=== PATIENT | female | born 2000 | race Caucasian/White ===

== ENCOUNTER → 2020-01-27 10:25 | Outpatient (BNVA) | payer OTHER, SELFPAY | PROVIDERS: PCP Nurse Practitioner Family; Visit Provider Family Medicine | DX: J02.9 Acute pharyngitis, unspecified (principal) | CPT/HCPCS: 87081; 87880 ==

== ENCOUNTER → 2021-11-08 14:06 | Outpatient (BNVA) | payer OTHER, SELFPAY | PROVIDERS: PCP Nurse Practitioner Family; Visit Provider Nurse Practitioner Women's Health | DX: Z34.90 Encounter for supervision of normal pregnancy, unspecified, unspecified trimester (principal); N92.6 Irregular menstruation, unspecified | CPT/HCPCS: 81025 ==

== ENCOUNTER → 2021-11-24 08:45 | Outpatient (BNVA) | payer OTHER, SELFPAY | PROVIDERS: PCP Nurse Practitioner Family; Visit Provider Obstetrics & Gynecology | DX: Z34.90 Encounter for supervision of normal pregnancy, unspecified, unspecified trimester (principal) | CPT/HCPCS: 80307; 81000; 85025; 86592; 86762; 86787; 86803; 86850; 86900; 87086; 87340; 87806 ==

== ENCOUNTER → 2021-12-06 10:46 | Outpatient (BNVA) | payer OTHER, SELFPAY | PROVIDERS: PCP Nurse Practitioner Family; Visit Provider Obstetrics & Gynecology | DX: Z34.90 Encounter for supervision of normal pregnancy, unspecified, unspecified trimester (principal) | CPT/HCPCS: 84315; 87491; 87591; 88175 ==

== ENCOUNTER → 2022-02-01 16:05 | Outpatient (BNVA) | payer OTHER, SELFPAY | PROVIDERS: PCP Nurse Practitioner Family; Visit Provider Obstetrics & Gynecology | DX: Z36.89 Encounter for other specified antenatal screening (principal) | CPT/HCPCS: 76805 ==

== ENCOUNTER → 2022-03-29 12:00 | Outpatient (BNVA) | payer OTHER, SELFPAY | PROVIDERS: PCP Nurse Practitioner Family; Visit Provider Obstetrics & Gynecology | DX: Z34.90 Encounter for supervision of normal pregnancy, unspecified, unspecified trimester (principal) | CPT/HCPCS: 82950; 84315; 85027 ==

== ENCOUNTER → 2022-05-24 12:00 | Outpatient (BNVA) | payer OTHER, SELFPAY | PROVIDERS: PCP Nurse Practitioner Family; Visit Provider Obstetrics & Gynecology | DX: Z34.90 Encounter for supervision of normal pregnancy, unspecified, unspecified trimester (principal) | CPT/HCPCS: 84315; 87081 ==

== ENCOUNTER → 2022-06-20 13:05 | Outpatient (BNVA) | payer OTHER, SELFPAY | PROVIDERS: PCP Nurse Practitioner Family; Visit Provider Obstetrics & Gynecology | DX: Z36.87 Encounter for antenatal screening for uncertain dates (principal) | CPT/HCPCS: 76815 ==

== ENCOUNTER 2022-06-20 19:41 | Inpatient (IN) | payer OTHER, SELFPAY ==
[2022-06-20] VITALS (12 sets, daily range): BP systolic 106–127; BP diastolic 59–81; PULSE 81–106; RESP 16–17; BMI 29.7
[2022-06-20 19:32] LABS: Basophils % 0.2 %; Eosinophils # 0.2 10^3/uL (0.0-0.8); Eosinophils % 1.8 %; Hematocrit 33.7 % (37.0-47.0); Hemoglobin 10.4 g/dL (11.5-15.3); Lymphocytes # 2.1 10^3/uL (0.8-4.8); Mean Corpuscular HGB Conc 30.9 g/dL (30.0-36.0); Mean Corpuscular Hemoglobin 26.1 pg (28.0-34.0); Mean Corpuscular Volume 84.5 fl (81-99); Mean Platelet Volume 11.1 fL (7.4-10.4); Monocytes # 0.6 10^3/uL (0.2-0.9); Neutrophils # 9.17 10^3/uL (1.8-7.7); Neutrophils % 74.1 %; Nucleated Red Blood Cells % 0 %; Platelet Count 456 10^3/cmm (130-400); Red Blood Count 3.99 10^6/uL (4.1-5.3); Red Cell Distribution Width 13.7 % (12.1-15.1); White Blood Count 12.4 10^3/uL (4.0-10.0)
[2022-06-20] MEDS: lactated ringers 1,000 ML 999 ML IV (19:45)
[2022-06-20] MEDS: miSOPROStol 100 mcg tablet 25 MCG VAGINAL (21:09)
[2022-06-21] VITALS (90 sets, daily range): BP systolic 98–198; BP diastolic 55–95; PULSE 62–193; RESP 16–18; TEMP 36.2–36.9; O2SAT 97–100
[2022-06-21] MEDS: alum-mag-hydroxide-sime 30 mL UDC PO (01:58)
[2022-06-21] MEDS: lactated ringers 1,000 ML 125 ML IV (02:54)
[2022-06-21] MEDS: oxytocin 30 UNIT/500 ML BAG IV (02:55)
[2022-06-21] MEDS: ondansetron 2 mg/ML SDV 2 mL 4 MG IVP ×2 (06:12→13:33)
--- NOTE | 2022-06-21 06:52 | P.HPUD_ITS ---
Labor & Delivery H&P Update Date of Procedure: June 21, 2022 Date H&P Performed: 06/20/22 H&P update information: I have reviewed H&P completed within last 30 days, I have examined patient prior to procedure, No changes to prior documentation and H&P is in [facility] [place] EMR on date indicated Admission Diagnosis:
[2022-06-21] MEDS: fentaNYL 50 mcg/mL INJ 2mL IVP (07:37)
[2022-06-21] MEDS: lactated ringers 1,000 ML 999 ML IV ×2 (08:35→09:27)
[2022-06-21] MEDS: metoclopramide 5 mg/mL SDV 2 mL 10 MG IV (08:42)
--- NOTE | 2022-06-21 10:16 | ANES.PREANE2 ---
Pre-Anesthetic Assessment Height/Weight: Height 1.63 m Weight 78.471 kg Temp Pulse Resp BP Pulse Ox O2 Del Method 98.1 F 82 17 102/68 100 06/21/22 10:04 06/21/22 10:13 06/21/22 10:04 06/21/22 10:13 06/21/22 10:13 06/20/22 20:00 Familial anesthetic complications: None Was Beta Noah taken within 24 hours: N/A Was Clonidine taken within 24 hours: N/A Social No alcohol and No tobacco Exam alert, oriented x 3, clear to auscultation bilaterally and regular rate & rhythm Airway Submandibular: within normal limits Cervical ROM: within normal limits Mallampati: Class II Dentition: full History/ROS No significant history except as noted Anesthetic Plan ASA status: 2 Anesthesia: Regional (specify below) (labor epidural) Medications/Allergies Home Medications Medication Instructions Recorded Confirmed Last Taken Type prenat.vits,callie,erm-fkym-bsosd 1 tab PO DAILY 11/08/21 06/20/22 Unknown History ferrous sulfate 325 mg (65 mg 325 mg PO BID #90 tabs 03/30/22 06/20/22 Unknown Rx iron) tablet,delayed release breast pump (Pump In Style #1 ea 04/06/22 06/20/22 Unknown Rx Advanced) Allergies Allergy/AdvReac Type Severity Reaction Status Date / Time No Known Allergies Allergy Verified 06/20/22 13:58 Current Medications Generic Name Dose Route Start Last Admin Trade Name Freq PRN Reason Stop Dose Admin Al Hydrox/Mg Hydrox/Simethicone 30 ml 06/20/22 19:11 06/21/22 01:58 Nuqs-Itj-Driwywxuw-Joann 30 Ml Udc PO 30 ml Q4H PRN Administration INDIGESTION Fentanyl 25 - 100 mcg 06/21/22 07:26 06/21/22 07:37 Fentanyl 50 Mcg/Ml Inj 2ml IVP 50 mcg Q1H PRN Administration SEVERE PAIN Lactated Ringer's 1,000 mls @ 999 mls/hr 06/20/22 19:11 06/21/22 09:27 Lactated Ringers IV Infused .Q1H1M PRN Infusion Per L&D Rescitation Protocol Lactated Ringer's 1,000 mls @ 125 mls/hr 06/21/22 00:30 06/21/22 09:27 Lactated Ringers IV Infused .Q8H BOB Infusion Oxytocin 30 unit in 500 mls @ 1 mls/hr 06/21/22 02:15 06/21/22 07:00 Pitocin IV 15 milliunit/min .Q24H BOB 15 mls/hr Titration Protocol 1 MILLIUNIT/MIN Ropivacaine 200 mg in 100 mls @ 13 mls/hr 06/21/22 08:45 06/21/22 09:26 Naropin Premix EPIDURAL 13 mls/hr .Q7H42M BOB Administration Lactated Ringer's 1,000 mls @ 999 mls/hr 06/21/22 08:43 06/21/22 09:46 Lactated Ringers IV 125 mls/hr .Q1H1M PRN Infusion See label comments Ondansetron HCl 4 mg 06/20/22 19:11 06/21/22 06:12 Ondansetron 2 Mg/Ml Sdv 2 Ml IVP 4 mg Q4H PRN Administration NAUSEA AND VOMITING PFSH Anesthesia Medical History Eczema Diagnosed in her teenage years and uses triamcinolone cream as needed No pertinent past medical history Denies diabetes, asthma, hypertension, seizures, DVT/PE PCP: None Surgical History No pertinent past surgical history Family History Grandmother Diabetes Maternal Hypertension Maternal and Paternal Family/Other Breast cancer Maternal and Paternal Great Grandmothers--- dx age both 60's Grandfather Hypertension Maternal and Paternal Denies family history of Colon cancer Ovarian cancer Heart disease Hypercholesteremia Uterine cancer Thyroid disease Stroke Female Reproductive History : 1 Data Anesthesia : 06/20/22 18:40 Short CBC 06/20/22 Range/Units 18:40 WBC 12.4 H (4.0-10.0) 10^3/uL Hgb 10.4 L (11.5-15.3) g/dL Hct 33.7 L (37.0-47.0) % MCV 84.5 (81-99) fl Plt Count 456 H (130-400) 10^3/cmm Neut % (Auto) 74.1 % Neut # (Auto) 9.17 H (1.8-7.7) 10^3/uL Cardiac Studies: No Data to Display Anesthesia Procedures Epidural Time Out Performed: Yes Consents Signed: Procedure Consent Lumbar Level: L3-L4 Epidural position: sitting Epidural procedure: sterile prep of area, 1% lidocaine to numb the area, 18 g needle, neg for paresthesia, test dose given, 1.5% xylocaine 1:200k epi, placed PCEA, no systemic response, sterile dressing applied and 0.2% Ropiavacaine @ mls/hr (13) Additional Comments: JAUN at 5cm, cath at 10cm, bolused 5mls of 2% lido
--- NOTE | 2022-06-21 17:30 | P.PCNOB_ITS ---
Delivery Note: Date of delivery: June 21, 2022 - PRE-DELIVERY DIAGNOSIS: 22-year-old 1 para 0 at 40weeks 0 days Induction of labor for IUGR of 6 percentile Mild anemia GBS negative POST-DELIVERY DIAGNOSIS: Vaginal delivery on 06/21/2022 PROCEDURE: Vaginal delivery on 06/21/2022 ANESTHESIA: Epidural anesthesia DELIVERING PHYSICIAN: Katy Larios FACOG PRE-DELIVERY COURSE: Ms. Manning was a 22-year-old 1 para 0 at 40 weeks and 0 days who presented for routine visit on 06/20/2022. At that visit ultrasound for growth performed showed growth was in the 6 percentile and given IUGR and the fact that she was 40 weeks I recommended delivery and patient is agreeable with this. When she presented to labor and delivery for scheduled induction later that day she was noted to be 1 to 2 cm, 60% and -2 station. She had no contractions. Induction was started with Cytotec placed at 11 PM. With this she started to have pretty regular contractions but was not uncomfortable. She did make some cervical change to 2 cm, 70% and -2 station after 4 hours however was having contractions every 3 to 5 minutes. She was started on Pitocin which was titrated to a maximum of 20 mIU. She had spontaneous rupture of membranes at 7:55 AM after which With this she started to have regular painful con tractions and an epidural was placed. With this she started to make regular cervical change and was 3 cm at 10:30 AM, 6 cm at 12:30 PM and fully dilated at 2:30 PM. She was set up in lithotomy position ready to push as she was uncomfortable and felt pressure. DELIVERY NOTE: She was set up in lithotomy position and was pushing effectively. She was noted to be +3 station and continued pushing well. The head delivered in ZULEYKA position, no nuchal cord was present. The shoulders and rest of the body followed with her next push. The baby's mouth and nose were suctioned and the baby was placed on the mother's belly. Once cord pulsations stopped the cord was clamped and cut. The placenta delivered spontaneously intact with membranes and was discarded. The fundus was noted to be firm and well contracted. The vagina and cervix were inspected and no cervical or sulcal lacerations were noted. The perineum was intact except for a first-degree vaginal laceration which was repaired with a [id number] suture with 3-0 Vicryl on an SH needle. Good reapproximation and hemostasis was achieved. Baby girl, Laura Maki born at 4:20 PM on 06/21/[birth year]22 with 8/9 , weighing 7 pounds 0 ounces, 3170 g, 21 inches long. Placenta was delivered spontaneously intact with membranes at 4:23 PM. Cotyledons were intact , centrally inserted umbilical cord with 3 vessels noted. Estimated blood loss 250 mL. Complications-none, both baby and mother were left to recover in a stable condition This documentation was created by fitaborate beauty specialist software (known for inherent beauty specialist error). Every effort was made to assure accuracy of beauty specialist. Any obvious errors or omissions should be clarified with the author of the document. History History History 1 Term 1 Miscarriages/Ectopic 0 0 Living Children 1 Other History: X 1 1---> 06/21/2022---full-term vaginal delivery at 40 weeks, baby girl,(Laura Maki) weighing [address] Larios at [facility] [place]. First-degree vaginal tear. No complications. Coding Level of Care Code Acute Weights And Measures Inspector for Nacho Carrasco
--- NOTE | 2022-06-21 18:50 | PC.NURSE ---
pt up to bathroom without assistance. chantal care shown. pad and gown changed. pt back to bed
[2022-06-21] MEDS: benzocaine-menthol 78 gm Canister 1 SPRAY TOPICAL (20:02)
[2022-06-21] MEDS: docusate sodium 100 mg Capsule PO (20:02)
[2022-06-21] MEDS: lanolin oint 7 gm 1 APPLIC TOPICAL (20:03)
[2022-06-21] MEDS: ibuprofen 800 mg tablet PO (21:11)
[2022-06-22] VITALS (7 sets, daily range): BP systolic 113–124; BP diastolic 65–73; PULSE 77–91; RESP 16–17; TEMP 36.7–36.9; O2SAT 99–100
[2022-06-22] MEDS: HYDROcodone-acetaminophen 5-325 mg Tablet PO (01:18)
[2022-06-22 04:21] LABS: Hematocrit 28.9 % (37.0-47.0); Hemoglobin 9.5 g/dL (11.5-15.3); Mean Corpuscular HGB Conc 32.9 g/dL (30.0-36.0); Mean Corpuscular Hemoglobin 26.5 pg (28.0-34.0); Mean Corpuscular Volume 80.5 fl (81-99); Platelet Count 362 10^3/cmm (130-400); Red Blood Count 3.59 10^6/uL (4.1-5.3); Red Cell Distribution Width 13.8 % (12.1-15.1); White Blood Count 19.5 10^3/uL (4.0-10.0)
[2022-06-22] MEDS: docusate sodium 100 mg Capsule PO (10:46)
[2022-06-22] MEDS: ibuprofen 800 mg tablet PO ×3 (10:46→22:30)
[2022-06-22] MEDS: prenatal vitamin Capsule 1 CAP PO (10:46)
--- NOTE | 2022-06-22 15:15 | ANE.PACU2 ---
Inpatient post-anesthesia follow up: Airway intact: Yes Vital signs: Temperature 98.1 F Pulse Rate 84 Respiratory Rate 16 Blood Pressure 117/65 Pulse Oximetry 100 Oxygen Delivery Me thod Room Air Oxygen Flow Rate Fraction of Inspir ed Oxygen Hydration adequate: Yes Nausea and vomiting: No Pain level: 1 Mental status: Baseline
--- NOTE | 2022-06-22 18:49 | PM.PN ---
Subjective Subjective: SUBJECTIVE: Ms. Manning is doing well today. She reports some soreness in her hips but is otherwise doing well. States that ibuprofen controls this well. Denies shortness of breath, chest pain, fever, chills, nausea, vomiting. She has been tolerating regular diet and voiding without any difficulty. She states that breast-feeding has been challenging but other than that is doing okay and is bonding well with her daughter. She reports moderate vaginal bleeding. OBJECTIVE/PHYSICAL EXAM: Gen.: No acute distress Heart: S1-S2 heard, regular rate and rhythm Lungs: Clear to auscultation bilaterally Abdomen: Soft, fundus firm below umbilicus,. Legs: No calf tenderness, +1 bilateral pitting pedal edema. ASSESSMENT AND PLAN: 22-year-old 1 para 1-0-0-1 status post vaginal delivery, day #1 -Doing well-continue routine care -Stable vital signs, stable hemoglobin, white count slightly elevated but not significantly given predelivery value. -Continue to monitor - consult done -Anticipate discharge home tomorrow as long as she is doing well -P.o. pain medication as needed Vitals/I&O/Wt Last Vital Signs Temp 98.1 F 06/22/22 10:30 Pulse 82 06/22/22 10:30 Resp 17 06/22/22 10:30 BP 120/72 06/22/22 10:30 Pulse Ox 100 06/22/22 05:50 O2 Del Method 06/22/22 10:30 06/22/22 06/22/22 06/22/22 06:59 14:59 22:59 Output Total 950 / 2650 Balance -950 / 724.500 Physical Exam Urinary Catheter Management: Abdi Latex: Cath Placed During This Visit: yes, but has since been removed by the nurse Reason for Continuing Indwelling Catheter: Decision to DC Catheter Urinary Catheter Date of Insertion: 06/21/22 Urinary Catheter Time of Insertion: 09:50 Date Urinary Catheter Removed: 06/21/22 Time Urinary Catheter Discontinued: 15:40 Data : 06/22/22 04:16 Attestations Medical Necessity Statement*: Patient is required just patient needs to stay for 1-2 more midnights to recover from delivery Coding Level of Care Code Acute [place]atch [place] Cleaner for Nacho Carrasco
[2022-06-23 04:30] VITALS: BP 113/61; PULSE 79; TEMP 36.6; O2SAT 98
[2022-06-23 07:24] VITALS: PULSE 79; TEMP 36.6; O2SAT 98
--- NOTE | 2022-06-23 07:54 | P.DS_ITS ---
Discharge Providers COUPLING MACHINE OPERATOR Date of Admission: 06/20/22 19:41 Date of Discharge: 06/23/22 Attending Provider at Admission: Katy Oakes MD Attending Provider at Discharge: Katy Oakes MD PRE-DELIVERY DIAGNOSIS: 22-year-old 1 para 0 at 40weeks 0 days Induction of labor for IUGR of 6 percentile Mild anemia GBS negative POST-DELIVERY DIAGNOSIS: Vaginal delivery on 06/21/2022 PROCEDURE: Vaginal delivery on 06/21/2022 ANESTHESIA: Epidural anesthesia DELIVERING PHYSICIAN: Katy Larios FACOG PRE-DELIVERY COURSE: Ms. Manning was a 22-year-old 1 para 0 at 40 weeks and 0 days who presented for routine visit on 06/20/2022.? At that visit ultrasound for growth performed showed growth was in the 6 percentile and given IUGR and the fact that she was 40 weeks I recommended delivery and patient is agreeable with this.? When she presented to labor and delivery for scheduled induction later that day she was noted to be 1 to 2 cm, 60% and -2 station.? She had no contractions.? Induction was started with Cytotec placed at 11 PM.? With this she started to have pretty regular contractions but was not uncomfortable.? She did make some cervical change to 2 cm, 70% and -2 station after 4 hours however was having contractions every 3 to 5 minutes.? She was started on Pitocin which was titrated to a maximum of 20 mIU.? ? She had spontaneous rupture of membranes at 7:55 AM after which With this she started to have regular painful contractions and an epidural was placed.? With this she started to make regular cervical change and was 3 cm at 10:30 AM, 6 cm at 12:30 PM and fully dilated at 2:30 PM.? She was set up in lithotomy position ready to push as she was uncomfortable and felt pressure. DELIVERY? NOTE: She was set up in lithotomy position and was pushing effectively. She was noted to be? +3 station and continued pushing well. The head delivered in ZULEYKA position, no nuchal cord was present. The shoulders and rest of the body followed with her next push. The baby's mouth and nose were suctioned and the baby was placed on the mother's belly.? Once cord pulsations stopped the cord was clamped and cut.? The placenta delivered spontaneously intact with membranes and was discarded. The fundus was noted to be firm and well contracted. The vagina and cervix were inspected and no cervical or sulcal lacerations were noted.? The perineum was intact except for a first-degree vaginal laceration which was repaired with a [id number] suture with 3-0 Vicryl on an SH needle.? Good reapproximation and hemostasis was achieved. Baby girl, Laura Maki born at 4:20 PM on 06/21/[birth year]22 with 8/9 , weighing 7 pounds 0 ounces, 3170 g, 21 inches long. Placenta was delivered spontaneously intact with membranes at 4:23 PM. Cotyledons were intact , centrally inserted umbilical cord with 3 vessels noted. Estimated blood loss 250 mL. Complications-none, both baby and mother were left to recover in a stable condition HOSPITAL COURSE: She underwent an uncomplicated vaginal delivery on 06/21/2022. She did well on day 0 and was ambulating well, tolerating regular diet, voiding freely, passing flatus. She was breast-feeding without difficulty and bonding well with her daughter. Pain was well-controlled with by mouth pain medication. She denied nausea, vomiting, fever, chills, shortness of breath, leg pain. She had moderate vaginal bleeding. On day # 1 she continued to do well with stable vital signs and stable hemoglobin at 9.5. She continued to do well on day #2 and wanted to stay for 2 days given that her baby had elevated bilirubin and was under going phototherapy. She was discharged home on day 2 in a stable condition. Warning signs for endometritis, mastitis, DVT/PE were reviewed with her. Post delivery activity restrictions were also reviewed with her at all her questions were answered to her satisfaction. Plans on using condoms for contraception. Transfer of care reviewed and patient is fine with visit with Judy Del Rosario. EXAM AT DISCHARGE: Gen.: No acute distress Heart: S1-S2 heard, regular rate and rhythm Lungs: Clear to auscultation bilaterally Abdomen: Soft, fundus firm below umbilicus Legs: No calf tenderness, +1 bilateral pitting pedal edema. CONDITION AT DISCHARGE: Stable This documentation was created by Typekit button sewing machine operator software (known for inherent button sewing machine operator error). Every effort was made to assure accuracy of button sewing machine operator. Any obvious errors or omissions should be clarified with the author of the document. Primary Care Provider: ADAM Hinkle Reason for Visit Reason for Visit: Induction Physical Exam Urinary Catheter Management: Abdi Latex: Cath Placed During This Visit: yes, but has since been removed by the nurse Reason for Continuing Indwelling Catheter: Decision to DC Catheter Urinary Catheter Date of Insertion: 06/21/22 Urinary Catheter Time of Insertion: 09:50 Date Urinary Catheter Removed: 06/21/22 Time Urinary Catheter Discontinued: 15:40 History History History 1 Term 1 Miscarriages/Ectopic 0 0 Living Children 1 Other History: X 1 1---> 06/21/2022---full-term vaginal delivery at 40 weeks, baby girl,(Laura Maki) weighing [address] [place] [facility] [place] First-degree vaginal tear. No complications. Discharge Data Studies Completed and Pending Laboratory Results WBC 19.5 10^3/uL (4.0-10.0) H 06/22/22 04:16 RBC 3.59 10^6/uL (4.1-5.3) L 06/22/22 04:16 Hgb 9.5 g/dL (11.5-15.3) L 06/22/22 04:16 Hct 28.9 % (37.0-47.0) L 06/22/22 04:16 MCV 80.5 fl (81-99) L 06/22/22 04:16 MCH 26.5 pg (28.0-34.0) L 06/22/22 04:16 MCHC 32.9 g/dL (30.0-36.0) 06/22/22 04:16 RDW 13.8 % (12.1-15.1) 06/22/22 04:16 Plt Count 362 10^3/cmm (130-400) 06/22/22 04:16 MPV 11.0 fL (7.4-10.4) H 06/22/22 04:16 Neut % (Auto) 74.1 % 06/20/22 18:40 Lymph % (Auto) 17.0 % 06/20/22 18:40 [place] % (Auto) 5.0 % 06/20/22 18:40 Eos % (Auto) 1.8 % 06/20/22 18:40 Baso % (Auto) 0.2 % 06/20/22 18:40 Neut # (Auto) 9.17 10^3/uL (1.8-7.7) H 06/20/22 18:40 Lymph # (Auto) 2.1 10^3/uL (0.8-4.8) 06/20/22 18:40 [place] # (Auto) 0.6 10^3/uL (0.2-0.9) 06/20/22 18:40 Eos # (Auto) 0.2 10^3/uL (0.0-0.8) 06/20/22 18:40 Baso # (Auto) 0.0 10^3/uL (0.0-0.1) 06/20/22 18:40 Nucleated RBC % (auto) 0 % 06/20/22 18:40 Nucleated RBCs # 0.0 /100WBC 06/20/22 18:40 Vitals Last Vital Signs Temp 97.9 F 06/23/22 07:24 Pulse 79 06/23/22 07:24 Resp 17 06/22/22 10:30 BP 113/61 06/23/22 04:30 Pulse Ox 98 06/23/22 07:24 O2 Del Method 06/23/22 04:30 Discharge Plan Discharge Patient Disposition: Home Condition: Stable Prescriptions: No Action prenat.vits,callie,uac-juwj-nbqpa Tablet 1 tab PO DAILY (DME) breast pump [Pump In Style Advanced] Device See Rx Instructions .MEDSUPPLY Qty: 1 0RF Rx Instructions: As directed ferrous sulfate 325 mg (65 mg iron) tablet,delayed release (DR/EC) 325 mg PO BID Qty: 90 2RF Patient Instructions: Depression (DC), Expression, Collection and Storage of Breast Milk (DC), Bleeding (DC), Preeclampsia and Eclampsia After Delivery (GEN), OB Discharge Report, OB Food/Drug Interaction Guide, Opioid Safety, OB Home Care, OB Vaginal Deliveries - [facility] Discharge Attestations COUPLING MACHINE OPERATOR Time Spent in Discharge Care*: greater than 30 min Coding Level of Care Code Acute Customer Acquisition Specialist for Chg Danilo
[2022-06-23] MEDS: prenatal vitamin Capsule 1 CAP PO (09:52)
[2022-06-23] MEDS: ibuprofen 800 mg tablet PO ×2 (09:52→16:09)
[2022-06-23] MEDS: docusate sodium 100 mg Capsule PO (09:52)
[2022-06-23 10:29] VITALS: BP 112/71; PULSE 83; RESP 18; O2SAT 99
[2022-06-23 16:21] VITALS: BP 107/66; PULSE 86; RESP 18; O2SAT 97
== END 2022-06-23 16:22 | disposition home or self-care (01) | DRG 807 ==
LOC: OPOB 06-21 01:42 → OBGYN 06-21 01:42
PROVIDERS: Admitting Provider Obstetrics & Gynecology; PCP Nurse Practitioner Family; Visit Provider Obstetrics & Gynecology
DX: O99.02 Anemia complicating childbirth (principal); Z37.0 Single live birth; D64.9 Anemia, unspecified; O36.5930 Maternal care for other known or suspected poor fetal growth, third trimester, not applicable or unspecified; O70.0 First degree perineal laceration during delivery; Z3A.40 40 weeks gestation of pregnancy
CPT/HCPCS: 36415; 51702; 84315; 85025; 85027; J2405; J2765; J2795; J3010